=== PATIENT | female | born 1995 | race African-American/Black ===

== ENCOUNTER 2019-08-27 17:09 | Emergency (ER) | payer OTHER, SELFPAY ==
[2019-08-27 17:29] VITALS: BP 112/70; PULSE 117; RESP 18; TEMP 37.7; O2SAT 100
[2019-08-27 17:54] LABS: Basophils Percent Auto 0.3 % (0.2-1.2); Hematocrit 40.8 % (37.0-47.0); Hemoglobin 13.5 g/dL (12.0-15.0); Immature Granulocyte Absolute 0.02 K/mm3 (0.00-0.031); Immature Granulocyte Percent A 0.3 % (0-0.5); Lymphocytes Absolute Auto 1.06 K/mm3 (0.9-3.2); Lymphocytes Percent Auto 14.1 % (18.3-44.2); Mean Corpuscular HGB Conc 33.1 g/dl (32-36); Mean Corpuscular Hemoglobin 25.7 pg (26-34); Mean Corpuscular Volume 77.6 fl (80-100); Monocytes Absolute Auto 0.5 K/mm3 (0.1-0.6); Neutrophils Percent Auto 79.3 % (45.5-73.1); Platelet Count Result 270 k/mm3 (150-375); Red Blood Count 5.26 M/mm3 (4.2-5.4); Red Cell Distribution Width 13.4 % (11.5-14.5); White Blood Count 7.5 K/mm3 (4.5-10.0)
[2019-08-27 18:00] LABS: Add Urine Microscopic? YES; Appearance Urine Clear (Clear); Bacteria Urine Trace /hpf; Bilirubin Urine Negative (Negative); Blood Urine Negative (Negative); Color Urine Yellow (Yellow); Glucose Urine UA Negative (Negative); Ketones Urine 2+ mg/dL (Negative); Leukocyte Esterase Ur 1+ LEU/UL (Negative); Mucus Urine Rare /lpf; Nitrate Urine Negative (Negative); Protein Urine 1+ mg/dL (Negative); Specific Grav Ur 1.029 (1.001-1.035); Squamous Epithelial Cell Urine Many /hpf (Few); Urobilinogen Urine Negative mg/dL (<2.0)
[2019-08-27 18:09] LABS: Alanine Aminotransferase 14 U/L (4-35); Albumin Level 4.9 g/dL (3.5-5.1); Alkaline Phosphatase 54 U/L (38-126); Aspartate Amino Transferase 29 U/L (14-36); Bilirubin,Total 1.2 mg/dL (0.2-1.3); Blood Urea Nitrogen 7 mg/dL (7-17); Calcium 10.2 mg/dL (8.4-10.2); Carbon Dioxide 19 mmol/L (22-30); Chloride 100 mmol/L (98-107); Estimated CRCL calculation 108 ml/min; Estimated Glomerular Filt Rate > 60; Glucose 77 mg/dL (65-105); Lipase 50 U/L (23-300); Sodium 134 mmol/L (137-145)
[2019-08-27] MEDS: FAMOTIDINE 20 MG/2 ML VIAL IV PUSH (20:07)
[2019-08-27] MEDS: PROCHLORPERAZINE EDISYLATE 10 MG/2 ML VIAL IV PUSH (20:07)
[2019-08-27] MEDS: DEXTROSE 5%/LACTATED RINGERS 1,000 ML 1000 ML IV CONT (20:07)
--- NOTE | 2019-08-27 20:31 | ED.PREGNANCY ---
HPI - General Chief complaint: Nausea/Vomiting/Diarrhea Stated complaint: n/v with 1st trimester Time Seen by Provider: 08/27/19 20:21 History of Present Illness HPI Narrative: Patient presents with a friend for recurrent vomiting during the early . This is her first . She vomits too many times a day to count. She has nausea with it. She works in a [employer] and could not go to work today. She already had an ultrasound of this and is been sent to [facility]. She has not yet made an appointment. She has a sore throat from vomiting so much. Sometimes the vomit comes through her nose and that limon her nose. She has not been sick in the last couple weeks. She has no medical problems. She does not smoke cigarette. She no longer drinks alcohol or smokes marijuana since the . She has not had a surgery MD Complaint: other (Hyperemesis) Onset (ago): day(s) Pain Consistency: constant Related Data Home Medications Medication Instructions Recorded Confirmed promethazine 08/27/19 08/27/19 Allergies Allergy/AdvReac Type Severity Reaction Status Date / Time No Known Allergies Allergy Verified 08/27/19 19:11 Review of Systems Review of Systems: Narrative: CONSTITUTIONAL: Denies fever, chills, or sweats. EYES: Denies visual changes, redness, or discharge. ENT: Denies rhinorrhea, congestion, or otalgia. CARDIOVASCULAR: Denies chest pain, palpitations, or edema. RESPIRATORY: Denies cough or dyspnea. GASTROINTESTINAL: Denies abdominal pain, but does have nausea, vomiting GENITOURINARY: Denies dysuria or hematuria. SKIN: Denies rash or itching. MUSCULOSKELETAL: Denies back pain, joint pain, or myalgia. NEUROLOGIC: Denies headache, numbness, or weakness. All systems reviewed & are unremarkable except as noted in HPI and below PMFSH Past Medical History Medical History Hyperemesis gravidarum Surgical History Surgical History (Updated 08/27/19 @ 20:37 by Ronel Woo MD) No pertinent past surgical history Social History Social History (Updated 08/27/19 @ 20:37 by Ronel Woo MD) Smoking status: Never smoker Alcohol intake: former Substance use: former Exam Narrative: Exam Narrative: GENERAL: Well-appearing, well-nourished, and in no acute distress. Beautiful extensions. HEAD: Normocephalic, atraumatic. EYES: PERRLA and EOMI. ENT: Nares clear, no rhinorrhea or epistaxis. Mucous membranes moist. Tonsils are present but not enlarged. NECK: Supple. CHEST: Clear to auscultation. No respiratory distress. HEART: Regular rate and rhythm. No murmur heard. Normal peripheral pulses. ABDOMEN: Soft, nontender, nondistended, normal active bowel sounds. EXTREMITIES: Normal range of motion. No edema. SKIN: Warm, dry, no rash. NEURO: No focal deficits. Alert and oriented x3. PSYCH: Normal mood and affect. Course Reevaluation(s) Reevaluation #1: Checked on the patient and she was able to drink juice and eat crackers and it stayed down. Her ketones have cleared to trace. She is ready to go home. Date: 08/28/19 Time: 01:40 Vital Signs Vital signs: Vital Signs Temperature 99.8 F H 08/27/19 17:29 Pulse Rate 117 H 08/27/19 17:29 Respiratory Rate 18 08/27/19 17:29 Blood Pressure 112/70 08/27/19 17:29 Pulse Oximetry 100 08/27/19 17:29 Temperature 97.3 F L 08/28/19 00:39 Pulse Rate 79 08/28/19 01:32 Respiratory Rate 18 08/28/19 01:32 Blood Pressure 100/68 08/28/19 01:32 Pulse Oximetry 100 08/28/19 01:32 MDM - OB/Uterine Contractions Differential Diagnosis Differential diagnosis: Likely other (Hyperemesis) Medical Records Attestation: I reviewed the patient's medical records. Lab Data Attestation: I reviewed the patient's lab results. Result diagrams: 08/27/19 17:45 08/27/19 17:45 Labs: Lab Results 08/27/19 08/27/19 08/27/19 Range/Un
[2019-08-27 21:30] LABS: Add Urine Microscopic? YES; Appearance Urine Cloudy (Clear); Bilirubin Urine Negative (Negative); Blood Urine Negative (Negative); Color Urine Yellow (Yellow); Glucose Urine UA 3+ mg/dL (Negative); Ketones Urine 2+ mg/dL (Negative); Leukocyte Esterase Ur 1+ LEU/UL (NEGATIVE); Mucus Urine Rare /lpf; Nitrate Urine Negative (Negative); Protein Urine 2+ mg/dL (Negative); Specific Grav Ur 1.028 (1.001-1.035); Squamous Epithelial Cell Urine Many /hpf (Few); Urobilinogen Urine Negative mg/dL (<2.0)
[2019-08-27 21:41] VITALS: BP 110/72; PULSE 77; RESP 18; O2SAT 98
[2019-08-27] MEDS: DEXTROSE 5%/0.9% SOD CHL 1,000 ML 999 ML IV CONT (22:07)
[2019-08-27 22:50] LABS: Add Urine Microscopic? YES; Appearance Urine Clear (Clear); Bilirubin Urine Negative (Negative); Blood Urine Negative (Negative); Color Urine Straw (Yellow); Glucose Urine UA 3+ mg/dL (Negative); Ketones Urine 2+ mg/dL (Negative); Leukocyte Esterase Ur Negative LEU/UL (NEGATIVE); Mucus Urine Rare /lpf; Nitrate Urine Negative (Negative); Protein Urine Negative (Negative); RBC Urine 0-2 /hpf (0-2); Specific Grav Ur 1.032 (1.001-1.035); Squamous Epithelial Cell Urine Moderate /hpf (Few); Urobilinogen Urine Negative mg/dL (<2.0); WBC Urine 0-3 /hpf (0-3)
[2019-08-28 00:39] VITALS: BP 108/67; PULSE 71; RESP 19; TEMP 36.3; O2SAT 100
[2019-08-28 00:48] LABS: Add Urine Microscopic? YES; Appearance Urine Clear (Clear); Bilirubin Urine Negative (Negative); Blood Urine Negative (Negative); Color Urine Straw (Yellow); Glucose Urine UA 3+ mg/dL (Negative); Ketones Urine Trace mg/dL (Negative); Leukocyte Esterase Ur Negative LEU/UL (NEGATIVE); Mucus Urine Rare /lpf; Nitrate Urine Negative (Negative); Protein Urine Negative (Negative); RBC Urine 0-2 /hpf (0-2); Squamous Epithelial Cell Urine Few /hpf (Few); Urobilinogen Urine Negative mg/dL (<2.0)
[2019-08-28 00:49] LABS: Specific Grav Ur 1.035 (1.001-1.035)
[2019-08-28 01:21] VITALS: BP 95/61; PULSE 104; RESP 18; O2SAT 100
[2019-08-28 01:32] VITALS: BP 100/68; PULSE 79; RESP 18; O2SAT 100
[2019-08-28 01:40] VITALS: BP 100/68; PULSE 71; RESP 19; TEMP 37; O2SAT 100
== END 2019-08-28 01:40 | disposition home or self-care (01) ==
PROVIDERS: Emergency Medicine; Emergency Provider Emergency Medicine; PCP Family Medicine
DX: O21.1 Hyperemesis gravidarum with metabolic disturbance (principal); O99.419 Diseases of the circulatory system complicating pregnancy, unspecified trimester; R00.0 Tachycardia, unspecified; Z3A.00 Weeks of gestation of pregnancy not specified
CPT/HCPCS: 36415; 80053; 81001; 81025; 83690; 84702; 85025; 96361; 96374; 96375; 99284; J0780; J7042; J7121